=== PATIENT | female | born 1955 | race Caucasian/White ===

== ENCOUNTER 2016-02-08 08:45 | Outpatient (RCR) | payer MEDICARE, MEDICAID | END 2016-04-01 12:25 | disposition home or self-care (01) | LOC: WSPT 08:45 | DX: M47.892 Other spondylosis, cervical region (principal); M54.12 Radiculopathy, cervical region; M16.0 Bilateral primary osteoarthritis of hip; M17.0 Bilateral primary osteoarthritis of knee; Z87.828 Personal history of other (healed) physical injury and trauma | CPT/HCPCS: G8978-GP; G8979-GP; G8980-GP ==

== ENCOUNTER 2016-09-04 09:00 | Outpatient (RCR) | payer MEDICARE, MEDICAID | END 2016-09-23 08:36 | disposition still patient (30) | LOC: WSOT 09:00 | DX: G56.03 Carpal tunnel syndrome, bilateral upper limbs (principal) | CPT/HCPCS: G8987-GO; G8988-GO ==

== ENCOUNTER 2016-10-07 11:15 | Outpatient (RCR) | payer MEDICARE, MEDICAID | END 2016-10-08 12:49 | disposition still patient (30) | LOC: WSPT 11:15 | DX: M54.2 Cervicalgia (principal); G89.29 Other chronic pain; M25.562 Pain in left knee; M25.561 Pain in right knee | CPT/HCPCS: G8978-GP; G8979-GP; G8980-GP ==

== ENCOUNTER → 2018-02-26 | Outpatient (CLI) | payer MEDICARE, MEDICAID | LOC: COL.RAD 10:10 | DX: G31.9 Degenerative disease of nervous system, unspecified (principal); R41.0 Disorientation, unspecified; R41.82 Altered mental status, unspecified | CPT/HCPCS: A9585 ==